=== PATIENT | female | born 1970 | race Caucasian/White ===

== ENCOUNTER 2021-08-17 04:37 | Emergency (ER) | payer MEDICAID ==
[~2021-08-17] VITALS: Ht 160 cm; Wt 85.9 kg
[2021-08-17 04:40] VITALS: BP 155/92
[2021-08-17] MEDS ORDERED: OMEP20 PO (04:45)
[2021-08-17] MEDS ORDERED: FAMO20 PO (04:45)
[2021-08-17] MEDS ORDERED: BUSP10TA23 PO (13:45)
== END 2021-08-17 07:02 | disposition left against medical advice (07) ==
LOC: EMS 04:44
DX: Z53.21 Procedure and treatment not carried out due to patient leaving prior to being seen by health care provider (principal)

== ENCOUNTER 2021-08-17 12:48 | Emergency (ER) | payer MEDICAID ==
[~2021-08-17] VITALS: Ht 160 cm; Wt 84.0 kg
[~2021-08-17 12:48] MED LIST: FAMO20 PO; OMEP20 PO
[2021-08-17 13:36] LABS: BASOPHILS % (AUTO) 0.5 % (0.0-2.0); EOSINOPHILS % (AUTO) 0.7 % (1.0-6.0); HEMATOCRIT 39.3 % (36-46); LYMPHOCYTES # (AUTO) 1.1 K/uL (1.0-4.8); LYMPHOCYTES % (AUTO) 8.5 % (22.0-44.0); MEAN CORPUSCULAR HEMOGLOBIN 28.8 pg (26.0-34.0); MEAN CORPUSCULAR HGB CONC 33.2 G/dL (31.0-37.0); MEAN CORPUSCULAR VOLUME 87 fL (80-100); MONOCYTES # (AUTO) 0.7 K/uL (0.1-1.0); MONOCYTES % (AUTO) 5.8 % (2.0-9.0); NEUTROPHILS # (AUTO) 10.6 K/uL (1.8-7.7); NEUTROPHILS % (AUTO) 84.5 % (40.0-70.0); PLATELET COUNT (AUTO) 304 K/uL (150-450); RED BLOOD CELL COUNT(AUTO) 4.52 MIL/uL (4.00-5.20); RED CELL DISTRIBUTION WIDTH 13.4 % (11.5-14.5)
[2021-08-17 13:42] LABS: ANION GAP 7 mmol/L (8-16); CALCIUM, TOTAL 9.5 mg/dL (8.8-10.5); CARBON DIOXIDE 26 mmol/L (22-29); CHLORIDE 103 mmol/L (98-107); CREATININE 0.81 mg/dL (0.60-1.30); GLUCOSE,RANDOM 118 mg/dL (70-110); POTASSIUM 3.8 mmol/L (3.5-5.1); SODIUM SERUM 136 mmol/L (136-145); UREA NITROGEN, BLOOD 10 mg/dL (7-18)
[2021-08-17 13:43] LABS: GLOMERULAR FILTR. RATE CALC > 60 mL/min (>60)
[2021-08-17] MEDS ORDERED: BUSP10TA23 PO (13:45)
[2021-08-17 13:48] LABS: ALANINE AMINOTRANSFERASE 34 U/L (12-78); ALBUMIN 3.6 g/dL (3.4-5.0); ALKALINE PHOSPHATASE 95 U/L (46-116); ASPARTATE AMINOTRANSFERASE 18 U/L (15-37); BILIRUBIN,TOTAL 0.6 mg/dL (0.1-1.0); LIPASE 55 U/L (73-393); TOTAL PROTEIN, SERUM 7.5 g/dL (6.4-8.2)
[2021-08-17] MEDS: DIAZEPAM 5 MG TABLET PO ONE (13:49)
[2021-08-17] MEDS: LIDOCAINE 5% TRANSDERMAL PATCH TD ONE (13:49)
[2021-08-17] MEDS: ACETAMINOPHEN 325 MG TABLET PO ONE (13:50)
[2021-08-17 13:51] LABS: APPEARANCE,URINE HAZY (CLEAR); BILIRUBIN,URINE NEGATIVE (NEGATIVE); GLUCOSE, URINE (UA) NEGATIVE (NEGATIVE); KETONES,URINE NEGATIVE (NEGATIVE); LEUKOCYTE ESTERASE ,URINE NEGATIVE (NEGATIVE); NITRATE,URINE NEGATIVE (NEGATIVE); OCCULT BLOOD,URINE MODERATE (NEGATIVE); PH,URINE 7.5 (5.0-8.0); PROTEIN,URINE NEGATIVE (NEGATIVE); SPECIFIC GRAVITIY, URINE 1.019 (1.003-1.030); UROBILINOGEN,URINE <=1.0 mg/dL (<=1.0)
[2021-08-17 14:19] LABS: SQUAMOUS EPITHELIAL CELL,UR Many /LPF (None Seen)
[2021-08-17 14:20] LABS: WBC,URINE 0-2 /HPF (0-5)
[2021-08-17 14:21] LABS: BACTERIA,URINE None Seen /HPF (None Seen)
[2021-08-17 15:19] VITALS: BP 138/69
== END 2021-08-17 15:47 | disposition home or self-care (01) ==
LOC: EMS 12:48
DX: R07.81 Pleurodynia (principal); M54.9 Dorsalgia, unspecified; F12.90 Cannabis use, unspecified, uncomplicated; Z87.19 Personal history of other diseases of the digestive system; Z85.038 Personal history of other malignant neoplasm of large intestine; Z98.890 Other specified postprocedural states
CPT/HCPCS: 71101; 80053; 81001; 83690; 85025; 99284